=== PATIENT | female | born 1960 | race Caucasian/White ===

== ENCOUNTER 2019-04-15 07:23 | Day surgery (SDC) | payer BC ==
[2019-04-13 13:26] LABS: EOSINOPHILS # (AUTO) 0.5 X10'3 (0-0.9); EOSINOPHILS % (AUTO) 11.1 % (0-6); HEMATOCRIT 38.7 % (35.0-45.0); HEMOGLOBIN 13.1 g/dl (12.0-16.0); LYMPHOCYTES # (AUTO) 1.4 X10'3 (1.1-4.8); LYMPHOCYTES % (AUTO) 31.9 % (21-51); MEAN CORPUSCULAR HEMOGLOBIN 30.5 PG (27.0-31.0); MEAN CORPUSCULAR HGB CONC 33.8 g/dL (33.0-36.5); MEAN CORPUSCULAR VOLUME 90.4 FL (78-98); MEAN PLATELET VOLUME 9.9 FL (7.4-10.4); MONOCYTES # (AUTO) 0.3 X10'3 (0-0.9); MONOCYTES % (AUTO) 7.9 % (2-12); NEUTROPHILS # (AUTO) 2.1 X10'3 (1.8-7.7); NEUTROPHILS % (AUTO) 48.1 % (42-75); PLATELET COUNT 225 X10'3 (140-440); RED BLOOD COUNT 4.28 X10'6 (4.20-5.60); RED CELL DISTRIBUTION WIDTH 14.4 % (11.5-14.5); WHITE BLOOD COUNT 4.4 X10'3 (4.5-11.0)
[2019-04-13 13:39] LABS: PARTIAL THROMBOPLASTIN TIME 26 SECONDS (22-32)
[2019-04-13 13:40] LABS: ALANINE AMINOTRANSFERASE 38 U/L (12-78); ALBUMIN 3.9 G/DL (3.4-5.0); ALKALINE PHOSPHATASE 116 IU/L (46-116); ANION GAP 11 (8-16); ASPARTATE AMINO TRANSFERASE 19 U/L (10-37); BILIRUBIN,TOTAL 0.6 MG/DL (0.1-1.0); BLOOD UREA NITROGEN 19 MG/DL (7-18); BUN/CREATININE RATIO 27.9 (6.6-38.0); CALCIUM 8.8 MG/DL (8.5-10.1); CHLORIDE 108 MMOL/L (99-107); CREATININE 0.68 MG/DL (0.40-0.90); GLUCOSE 96 MG/DL (70-104); POTASSIUM 4.2 MMOL/L (3.5-5.1); SODIUM 143 MMOL/L (135-145); TOTAL CARBON DIOXIDE 23.7 MMOL/L (24-32); TOTAL PROTEIN 7.8 G/DL (6.4-8.2); eGFR 90 ML/MIN
[2019-04-15] VITALS (12 sets, daily range): BP systolic 97–157; BP diastolic 55–102
[~2019-04-15] VITALS: Ht 172.7 cm; Wt 108.0 kg
[2019-04-15] MEDS ORDERED: nitroGLYCERIN 0.4mg SUBLingual tab SL PRN (07:40)
[2019-04-15] MEDS ORDERED: diphenhydrAMINE 25mg capsule PO PRN (07:40)
[2019-04-15] MEDS ORDERED: LORazepam 0.5 MG tablet PO PRN (07:40)
[2019-04-15] MEDS ORDERED: normal saline 1,000 ML IV SCH (07:40)
[2019-04-15] MEDS ORDERED: LISI10TA4 PO (08:46)
[2019-04-15] MEDS ORDERED: CHOL10002 PO (08:46)
[2019-04-15] MEDS ORDERED: NAPR220T67 PO (08:46)
[2019-04-15] MEDS ORDERED: DET2T PO (08:46)
[2019-04-15] MEDS ORDERED: ASPI81TA52 PO (08:46)
[2019-04-15] MEDS ORDERED: PRAV20TA4 PO (08:46)
[2019-04-15] MEDS ORDERED: SERT-153 PO (08:46)
[2019-04-15] MEDS ORDERED: LIDOcaine 1% (10mg/ml)w/preservative injection 20ml MDV ONE (09:30)
[2019-04-15] MEDS ORDERED: iohexol 350 MG/ML 50ML vial IV ONE (09:30)
[2019-04-15] MEDS ORDERED: iohexol 350MG/ML 100ml bottle IV ONE (09:30)
[2019-04-15] MEDS ORDERED: fentaNYL/PF 50MCG/1 ML 2ML syringe ONE (09:31)
[2019-04-15] MEDS ORDERED: midazolam 2 mg/2 ml injection ONE (09:31)
[2019-04-15] MEDS ORDERED: HYDROcodone/acetaminophen 10/325mg tab PO PRN (10:50)
[2019-04-15] MEDS ORDERED: proCHLORperazine 10 MG/2 ml inj IV PRN (10:50)
[2019-04-15] MEDS ORDERED: HYDROcodone/acetaminophen 5mg/325mg tablet PO PRN (10:50)
[2019-04-15] MEDS ORDERED: ondansetron/PF 4mg/2ml inj IV PRN (10:50)
[2019-04-15] MEDS ORDERED: OXAZEpam 15mg capsule PO PRN (10:50)
== END 2019-04-15 16:00 | disposition home or self-care (01) ==
LOC: SSTAY O 07:23
PROVIDERS: ATTEND Internal Medicine Cardiovascular Disease
DX: R94.39 Abnormal result of other cardiovascular function study (principal); I25.10 Atherosclerotic heart disease of native coronary artery without angina pectoris; I10 Essential (primary) hypertension; E78.5 Hyperlipidemia, unspecified; G62.9 Polyneuropathy, unspecified; G47.33 Obstructive sleep apnea (adult) (pediatric); Z96.652 Presence of left artificial knee joint; Z98.84 Bariatric surgery status; Z86.73 Personal history of transient ischemic attack (TIA), and cerebral infarction without residual deficits; Z79.01 Long term (current) use of anticoagulants; Z79.899 Other long term (current) drug therapy; Z87.891 Personal history of nicotine dependence
CPT/HCPCS: 36415; 71046; 80053; 85025; 85610; 85730; 93458; 99152; 99153; A6258; C1760; C1769; J1644; J2001; J2250; J3010; J7030; Q0163; Q9967

== ENCOUNTER 2020-01-31 05:18 | Emergency (ER) | payer BC, OTHER ==
[~2020-01-31] VITALS: Ht 172.7 cm; Wt 104.5 kg
[~2020-01-31 05:18] MED LIST: ASPI81TA52 PO; CHOL10002 PO; DET2T PO; LISI10TA4 PO; NAPR220T67 PO; PRAV20TA4 PO; SERT-153 PO
[2020-01-31] MEDS ORDERED: ondansetron 4mg rapidly disintigrating tab PO ONE (05:35)
[2020-01-31] MEDS ORDERED: HYDROcodone/acetaminophen 5mg/325mg tablet PO ONE (05:35)
[2020-01-31 06:24] VITALS: BP 119/75
[2020-01-31] MEDS ORDERED: HYDR-4383 PO (06:28)
== END 2020-01-31 07:03 | disposition home or self-care (01) ==
LOC: ER 05:18
DX: S42.292A Other displaced fracture of upper end of left humerus, initial encounter for closed fracture (principal); G89.29 Other chronic pain; Z79.82 Long term (current) use of aspirin; Z79.899 Other long term (current) drug therapy; W01.0XXA Fall on same level from slipping, tripping and stumbling without subsequent striking against object, initial encounter; Y93.89 Activity, other specified; Y92.002 Bathroom of unspecified non-institutional (private) residence as the place of occurrence of the external cause; Y99.8 Other external cause status
CPT/HCPCS: 73060; 99284